=== PATIENT | female | born 1945 | race Caucasian/White ===

== ENCOUNTER 2016-12-31 10:10 | Emergency (ER) | payer MEDICARE, MEDICAID ==
--- NOTE | 2016-12-31 10:19 | EDPRACDOC ---
- General Information Stated Complaint: PAIN; FOOT Time Seen by Provider: 12/31/16 10:14 Information Source: Patient Mode Of Arrival: Ambulance Home Medications: Home Medications Folic Acid 1 mg PO DAILY 03/11/13 Furosemide [Lasix] 80 mg PO BID 03/11/13 Insulin Detemir [Levemir] 45 unit SQ HS 03/11/13 Levothyroxine [Synthroid, Levoxyl] 112 mcg PO DAILY 03/11/13 Oxycodone Immediate Release [Oxycodone Immediate Release (OxyIR)] 10 mg PO HS Cholecalciferol [Vitamin D3 (cholecalciferol)] 1,000 units PO DAILY 09/20/13 Cyanocobalamin (Vitamin B-12) [Vitamin B-12 (cyanocobalamin)] 2,500 mcg SL DAILY 09/20/13 Trazodone HCl [Desyrel] 25 mg PO HS 09/20/13 Simvastatin [Zocor] 40 mg PO HS 03/26/14 Aspirin (Enteric Coated) [Halfprin] 81 mg PO DAILY 07/03/14 Docusate Sodium [Colace] 100 mg PO BID 07/03/14 Carvedilol [Coreg] 12.5 mg PO BID 08/09/15 Gabapentin 600 mg PO HS 08/09/15 Omeprazole [Prilosec] 20 mg PO DAILY 08/09/15 Insulin Lispro [Humalog] 8 units SQ TID 06/26/16 Montelukast Sodium [Singulair] 10 mg PO DAILY 06/26/16 Polyethylene Glycol 3350 [Miralax] 17 gm PO DAILY PRN #119 grams 06/26/16 Calcium Carbonate [Calcium] 500 mg PO TID 09/17/16 Cetirizine HCl [Zyrtec] 10 mg PO DAILY 09/17/16 Ropinirole HCl [Requip] 0.25 mg PO HS 09/17/16 Sennosides [Senna] 8.6 mg PO QHS 09/17/16 Cephalexin Monohydrate [Keflex] 500 mg PO Q6H #20 cap 12/31/16 Oxycodone HCl [Roxicodone] 5 mg PO Q4 PRN #10 tablet 12/31/16 Prednisone [Deltasone, Orasone] 10 mg PO DAILY #39 tablet 12/31/16 Allergies/Adverse Reactions: Allergies Allergy/AdvReac Type Severity Reaction Status Date / Time enoxaparin sodium Allergy Severe bleeding Verified 09/17/16 09:55 [From Lovenox] in eye - History of Present Illness Onset: LAST EVENING HPI: PT WITH RIGHT FOOT PAIN STARTED LAST NIGHT. B/L PAIN TODAY. PAIN 10/10 WHEN WALKING. NO H/O SIMILAR PAIN. FEVER IN ED. H/O GOUT. ED Past Medical History - Patient Medical History Cardiac History: Reports: Hypertension, Congestive Heart Failure, Heart Attack, Cardiac Catheterization, Hypercholesterolemia GI/ History: Reports: Renal Failure (stage 4), Gastroesophageal Reflux Psychological History: Reports: Depression Systemic History: Reports: Cancer (lymphoma remission), Diabetes, Hyperthyroidism Additional Past Medical History: lymphoma remission Surgical History: Reports: Hysterectomy, Cardiac Catheterization, Tonsillectomy/ Adnoidectomy - Family Medical History Reports: Diabetes, Cancer (father- lung). Denies: Hypertension, Stroke, Cardiac Disorders - Social Medical History Smoking Status: Never smoker - Physical Exam Constitutional: Alert (Awake), No apparent distress Oriented to: Time, Person, Place Last recorded Vital Signs: Oxygen Pulse Oxygen Saturation O2 Device Oxygen Flow Rate Fraction of Inspired Oxygen ( FIO2) - HEENT Head: Normal ( normocephalic) Eye Exam: Normal (PERRL, EOMI, Sclera white) Oropharynx: Normal (Pharynx:Moist without exudate,Gums-no swelling) Nose: No Symptoms Reported (septum midline) Neck: Normal (FROM, trachea at midline) - Respiratory/Cardiovascular Respiratory: Normal - CTA (BBS clear to auscultation without adventitious sounds ) Cardiovascular: Normal (RRR without murmur, gallop or rub) - GI Auscultation: Normal (NABS) Palpation: Normal (Soft,No rebound or guarding, non distended) Tenderness: Non tender Pereira's Sign: Negative - Musculoskeletal Back: Normal (Non-Tender) Extremities: Normal (Normal tone, Pulses 2+ No cyanosis or edema, FROM) - Integumentary Skin: Normal, Warm, Dry Lymphatics: Normal (no adenopathy) - Neurologic Memory Impaired: Normal Motor Function: Normal (Normal tone, Pulses 2+ No cyanosis or edema, FROM) Cranial Nerve: Normal (CN II-X11 intact sensation, strength 5/5) Cerebellar: Normal Mood Description: Normal Perception: Normal ED Low Extremities Phys Exam - Other Exam Other Exam Findings: B/L FEET TTP. NO ERYTHEMA. NEUROVASC INTACT. - Results 12/31/16 12:16 12/31/16 12:16 Decision Time to Discharge: 13:24 - Departure Yes I personally saw and evaluated the patient. Disposition: Home Condition: Stable Final Diagnosis: Gout of foot Qualifiers: Gout etiology: unspecified cause Laterality: unspecified laterality Chronicity : acute Qualified Code(s): M10.9 - Gout, unspecified UTI (urinary tract infection) Qualifiers: Urinary tract infection type: acute cystitis Hematuria presence: with hematuria Qualified Code(s): N30.01 - Acute cystitis with hematuria Instructions: Gout (ED), Urinary Tract Infection in Women (ED), Dysuria Education/Counseling Given To: Patient Education/Counseling Given Regarding: Diagnosis, Treatment Referrals: None,No Provider [Primary Care Provider] - One Week Prescriptions: New Cephalexin Monohydrate [Keflex] 500 mg PO Q6H #20 cap Prednisone [Deltasone, Orasone] 10 mg PO DAILY #39 tablet Oxycodone HCl [Roxicodone] 5 mg PO Q4 PRN #10 tablet PRN Reason: Pain No Action Levothyroxine [Synthroid, Levoxyl] 112 mcg PO DAILY Insulin Detemir [Levemir] 45 unit SQ HS Furosemide [Lasix] 80 mg PO BID Folic Acid 1 mg PO DAILY Oxycodone Immediate Release [Oxycodone Immediate Release (OxyIR)] 10 mg PO HS Trazodone HCl [Desyrel] 25 mg PO HS Cyanocobalamin (Vitamin B-12) [Vitamin B-12 (cyanocobalamin)] 2,500 mcg SL DAILY Cholecalciferol [Vitamin D3 (cholecalciferol)] 1,000 units PO DAILY Simvastatin [Zocor] 40 mg PO HS Docusate Sodium [Colace] 100 mg PO BID Aspirin (Enteric Coated) [Halfprin] 81 mg PO DAILY Omeprazole [Prilosec] 20 mg PO DAILY Carvedilol [Coreg] 12.5 mg PO BID Gabapentin 600 mg PO HS Montelukast Sodium [Singulair] 10 mg PO DAILY Insulin Lispro [Humalog] 8 units SQ TID Polyethylene Glycol 3350 [Miralax] 17 gm PO DAILY PRN #119 grams PRN Reason: Constipation Sennosides [Senna] 8.6 mg PO QHS Ropinirole HCl [Requip] 0.25 mg PO HS Cetirizine HCl [Zyrtec] 10 mg PO DAILY Calcium Carbonate [Calcium] 500 mg PO TID
[2016-12-31 10:53] VITALS: TEMP 100.5; BMI 35.4
[2016-12-31] MEDS ORDERED: OXYCODONE HCL 5 MG TABLET PO ONE (10:55)
[2016-12-31] MEDS: PREDNISONE 20 MG TAB PO ONE ×3 (11:14→11:19)
[2016-12-31] MEDS ORDERED: PREDNISONE 10 MG TAB ONE (11:15)
[2016-12-31] MEDS ORDERED: PREDNISONE 20 MG TAB ONE (11:17)
--- NOTE | 2016-12-31 11:50 | DIRPT ---
CLINICAL DATA: Patient with fever and history of congestive heart failure. EXAM: CHEST 2 VIEW COMPARISON: Chest radiograph 09/17/2016 FINDINGS: Stable cardiac and mediastinal contours. Unchanged heterogeneous opacities bilateral lung bases. No large area of pulmonary consolidation. No pleural effusion or pneumothorax. Kyphoplasty material within the mid thoracic spine. IMPRESSION: Basilar atelectasis and or scarring. No acute cardiopulmonary process. Electronically Signed By: Rick Franco M.D. On: 12/31/2016 11:48
[2016-12-31 12:20] LABS: AUTOMATED BASOPHIL 0.4 % (0-2); AUTOMATED EOSINOPHIL 0.6 % (0-5); AUTOMATED LYMPH 21.3 % (17-44); AUTOMATED MONOCYTE 8.4 % (3-10); AUTOMATED NEUTROPHIL 69.3 % (45-76); MPV 8.4 fL (7.4-10.4)
[2016-12-31 12:25] LABS: LEUKOCYTES/URINE 2+ (NEGATIVE); NITRITE/URINE NEG (NEGATIVE); URINE OCCULT BLOOD 1+ (NEG/TRACE); WBC/URINE TNTC (0-5)
[2016-12-31 12:32] LABS: BLOOD UREA NITROGEN 47 MG/DL (7-17); CALC CORRECTED 8.6 MG/DL (8.4-10.2); CALCIUM 8.1 MG/DL (8.4-10.2); CALCULATED OSMOLALITY 278 MOs/Kg (270-290); CHLORIDE 97 mEq/L (98-107); GLUCOSE 214 mg/dL (70-99); SODIUM LEVEL 135 mEq/L (137-146); TOTAL PROTEIN 6.9 G/DL (6.3-8.2); URIC ACID 10.3 MG/DL (2.5-7.5)
[2016-12-31] MEDS ORDERED: CEPHALEXIN 500 MG CAP PO ONE (13:22)
[2016-12-31 14:06] VITALS: BP 149/78; PULSE 78
== END 2016-12-31 14:05 | disposition home or self-care (01) ==
LOC: ED 10:10
DX: M10.9 Gout, unspecified (principal); N30.01 Acute cystitis with hematuria
CPT/HCPCS: 36415; 71020; 80053; 81001; 84550; 85025; 99283; A9270; J3490